=== PATIENT | female | born 1940 | race Caucasian/White ===

== ENCOUNTER 2017-01-05 11:54 | Observation (INO) | payer MEDICARE, OTHER ==
--- NOTE | 2017-01-02 15:15 | NUR ---
NN HAD PT HOLD ASPIRIN FOR THE WEEKEND PER ANI AT DR. LIN'S OFFICE.
[2017-01-05] VITALS (16 sets, daily range): BP systolic 138–198; BP diastolic 72–116; PULSE 84–106; RESP 14–28; TEMP 98–101.7; O2SAT 91–96; Ht 167.6 cm; Wt 103.0 kg
[~2017-01-05] VITALS: Ht 167.6 cm; Wt 103.0 kg
[~2017-01-05 11:54] MED LIST: ASPI-558 PO; BETA1TAB20 PO; CALC-587 PO; DOCU-129 PO; DOXY100C2 PO; HYDR-4246 PO; IBUP200C42 PO; LEVO125T9 PO; LIDOCAINE 1% (10mg/ml) 2ml SDV INJ ONE; LR 1,000 ML IV SCH; PRED20TA PO; ROSU10TA13 PO; SERT-77 PO; [UNRECOGNIZED DRUG - OTHER] PO
--- OUTSIDE RECORDS SUMMARY | 2017-01-05 11:59 | XMS REPORT ---
Author Author [facility]. Organization [facility] Address [address] [place] [address] Phone [phone] Summary purpose CCDA Sent to [facility] Chief Complaint and Reason for Visit No authorized Reason for Visit (Admitting Diagnosis) is available for this visit. Problem list No authorized problems tracked for continuity of care are available for this visit. Encounters No authorized problems tracked for encounter diagnoses are available for this visit. Medications No medications recorded for this patient visit Allergies, adverse reactions, alerts Allergen Category Ingredient Status Reaction Severity Onset No Known Drug Allergy No Known Drug Allergy No Known Drug Allergy Active Immunizations No immunizations recorded for this patient visit Relevant diagnostic tests and/or laboratory data No authorized results are available for this patient visit History of procedures No procedures recorded for this patient visit. Functional status No functional or cognitive status observations are available for this visit. Vital signs No authorized vital signs are available for this visit. Social history No Social History or smoking status observations were recorded for this visit. ( Unknown if ever smoked.) Treatment Plan No treatment plan text is available for this visit. Hospital discharge instructions No discharge instruction text is available for this visit.
--- OUTSIDE RECORDS SUMMARY | 2017-01-05 11:59 | XMS REPORT ---
Author Author [facility]. Organization [facility] Address [address] [place] [address] Phone [phone] Summary purpose CCDA Sent to [facility] Chief Complaint and Reason for Visit Admit Diagnosis 1 FEVER,WEAKNESS, BODY PAIN Problem list Condition Status Certainty Chronicity Onset .Fever Active .Weakness Active Encounters The following conditions tracked for encounter diagnoses were recorded for this visit: Finding or Diagnosis Status Certainty Chronicity Onset .Fever Active .Weakness Active Medications Discharge Medications Status Medication Directions Current Aspir-Low 81 mg tablet,delayed release 1 tab(s) oral DAILY Current Calcium + D 600 mg (1,500 mg)-200 unit tablet 1 tab(s) oral DAILY Current docusate sodium 100 mg capsule 1 capsule(s) oral HS Current Eye-Km Extra + Lutein oral 1 tab(s) oral DAILY Current HYDROcodone-acetaminophen (HYDROCONE/APAP) 5-325 mg 1 tab(s) oral EVERY FOUR HOURS NEEDED for PAIN Current ibuprofen 200 mg tablet 4 tab(s) oral oral EVERY EIGHT HOURS NEEDED for pain/fever Current Lasix 20 mg tablet 1 tab(s) oral oral NEEDED for edema Current Nitrostat 0.4 mg sublingual tablet 1 tab(s) Sublingual SL EVERY FIVE MINUTES NEEDED for chest pain xpath-functions" xmlns:xs="http://www.[employer].org/2001/XMLSchema" />UP TO 3 DOSES IN 15 MIN Current PREDNISONE 20 mg: TABLET 60 MG oral WITH BREAKFAST Current sertraline (ZOLOFT) 50 mg: TABLET 100 MG oral HS Current Synthroid 125 mcg tablet 1 tab(s) oral DAILY Stopped Metamucil oral powder 1 teaspoon(s) oral NEEDED Stopped Zoloft 100 mg tablet 1 tab(s) oral HS NEEDED Allergies, adverse reactions, alerts Allergen Category Ingredient Status Reaction Severity Onset No Known Drug Allergy No Known Drug Allergy No Known Drug Allergy Active Immunizations No immunizations recorded for this patient visit Relevant diagnostic tests and/or laboratory data RESULTS [id number]:00:00 Discharge Summary Patient discharged home. [id number]:32:34 Discharge Summary Pt admitted with fever of 3 days duration. No source found on w/u in ER. Blood cultures obtained. Pt started on Prednisone for possible Temporal Arteritis. CT head and LP negative. Blood cultures negative. No antibiotics given. CBC :35:00 Result Normal Range Units WBC 5.94 4.8-10.8 x103/mm3 Neutrophil % H 79.5 50-70 % Lymph % L 11.6 20-50 % [place] % 8.4 1.0-9.0 % Eosinophil % 0.2 0-4 % Basophil % 0.3 0-2 % Neutrophil # 4.72 3.0-7.0 x103/mm3 Lymph # L 0.69 1.0-4.0 x103/mm3 [place] # 0.50 0.0-0.8 x103/mm3 Eosinophil # 0.01 0-0.5 x103/mm3 Basophil # 0.02 0-0.2 x103/mm3 RBC L 3.92 4.20-5.40 x103/mm3 HGB 12.1 12.0-16.0 g/dl HCT L 36.2 37.0-47.0 % MCV 92.3 81-99 FL MCH 30.9 27.0-31.0 pg MCHC 33.4 32.0-36.0 g/dl RDW 13.8 12-15 % Platelet L 135 150-400 x103/mm3 MPV 9.9 6.0-10.0 FL :00:00 Result Normal Range Units WBC L 4.03 4.8-10.8 x103/mm3 Neutrophil % 69.2 50-70 % Lymph % L 19.9 20-50 % [place] % H 10.4 1.0-9.0 % Eosinophil % 0.0 0-4 % Basophil % 0.5 0-2 % Neutrophil # L 2.79 3.0-7.0 x103/mm3 Lymph # L 0.80 1.0-4.0 x103/mm3 [place] # 0.42 0.0-0.8 x103/mm3 Eosinophil # 0.00 0-0.5 x103/mm3 Basophil # 0.02 0-0.2 x103/mm3 RBC L 3.85 4.20-5.40 x103/mm3 HGB L 11.9 12.0-16.0 g/dl HCT L 35.9 37.0-47.0 % MCV 93.2 81-99 FL MCH 30.9 27.0-31.0 pg MCHC 33.1 32.0-36.0 g/dl RDW 14.0 12-15 % Platelet L 135 150-400 x103/mm3 MPV H 10.5 6.0-10.0 FL :00:00 Result Normal Range Units WBC L 4.70 4.8-10.8 x103/mm3 Neutrophil % H 83.9 50-70 % Lymph % L 10.6 20-50 % [place] % 5.3 1.0-9.0 % Eosinophil % 0.0 0-4 % Basophil % 0.2 0-2 % Neutrophil # 3.94 3.0-7.0 x103/mm3 Lymph # L 0.50 1.0-4.0 x103/mm3 [place] # 0.25 0.0-0.8 x103/mm3 Eosinophil # 0.00 0-0.5 x103/mm3 Basophil # 0.01 0-0.2 x103/mm3 RBC 4.21 4.20-5.40 x103/mm3 HGB 13.0 12.0-16.0 g/dl HCT 39.3 37.0-47.0 % MCV 93.3 81-99 FL MCH 30.9 27.0-31.0 pg MCHC 33.1 32.0-36.0 g/dl RDW 14.0 12-15 % Platelet L 132 150-400 x103/mm3 MPV 9.9 6.0-10.0 FL Urinalysis :25:00 Result Normal Range Units Site VOID Color Yellow Urine Appearance Clear Specific [place] 1.015 1.005-1.030 pH 5.5 5.0-9.0 Protein Negative Negative Glucose Negative Negative Ketones AB 4+ Negative Bilirubin Negative Negative Blood AB Trace-lyse Negative Nitrite Negative Negative Urobilinogen 0.2 0.20 mg/dl Leukocyte Negative Negative Chemistry Group :35:00 Sodium SMR Potassium SMR Chloride SMR CO2 SMR Glucose SMR BUN SMR Creatinine SMR eGFR SMR Total Protein SMR Albumin SMR Calcium SMR Alk Phos SMR AST SMR ALT SMR T Bili SMR A/G Ratio [facility] :00:00 Sodium SMR Potassium SMR Chloride SMR CO2 SMR Glucose SMR BUN SMR Creatinine SMR eGFR SMR Total Protein SMR Albumin SMR Calcium SMR Alk Phos SMR AST SMR ALT SMR T Bili SMR A/G Ratio SMR :00:00 Result Normal Range Units Sodium L 132 134-145 mmol/L Potassium 3.7 3.6-5.0 mmol/L Chloride L 95 98-107 mmol/L CO2 24 22-30 mmol/L Glucose 97 75-110 mg/dl BUN 10 9-20 mg/dl Creatinine L .61 0.8-1.7 mg/dl eGFR 95 ml/min. Total Protein 7.1 6.3-8.2 g/dl Albumin L 3.4 3.5-5.0 g/dl Calcium L 7.6 8.4-10.2 mg/dl Alk Phos 101 38-126 U/L AST H 60 14-36 U/L ALT 43 11-66 U/L T Bili .8 0.2-1.3 mg/dl A/G Ratio .9 Ratio [facility] Group :00:00 Result Normal Range Units Sed Rate (ESR) 10 0-20 MM/hr. Special Chemistry Group [id number]:35:00 Result Normal Range Units TSH L .37 0.50-6.00 uIU/mL Reference Lab Group :00:00 Result Normal Range Units C-Reactive Protein H 9.5 <0.5 mg/dL C-Reactive Protein performed at [facility] Reference Lab, [address] [place] [address] Archer[employer] Equipment Repairer Luciana Colvin DO [id number]:35:00 Result Normal Range Units Culture Blood Source See Comment Result Amended on 2017-01-02 at 15:56:46. Previous status was [place]. .Site: Received : 12/31/16 17:58 .Order#: [id number] Blood Culture PRELIM 01/01/17 12:15 F .No growth after 12 hours incubation. Nursing unit will be . called if growth is detected. .- .F: Performed at: [facility], [address], [place] FOR RESULTS: * - NEW RESULT - RESULT WAS MODIFIED AFTER FINAL STATUS SET [place] [address] [employer] Equipment Repairer Luciana Colvin DO Test Culture Blood Source with result ofSee Comment was originally reported asBLOOD 2 and was changed on 01/01/2017 12:16 by AMS Culture Blood See Comment [id number]:25:00 Result Normal Range Units Culture Blood Source See Comment Result Amended on 2017-01-02 at 15:56:46. Previous status was [place]. .Site: Received : 12/31/16 17:57 .Order#: [id number] Blood Culture PRELIM 01/01/17 12:15 F .No growth after 12 hours incubation. Nursing unit will be . called if growth is detected. .- .F: Performed at: [address], [place] FOR RESULTS: * - NEW RESULT - RESULT WAS MODIFIED AFTER FINAL STATUS SET [place] [address] Archer[employer] Equipment Repairer Luciana Colvin DO Test Culture Blood Source with result ofSee Comment was originally reported asBLOOD 1 and was changed on 01/01/2017 12:15 by AMS Culture Blood See Comment Urinalysis with Microscopic [id number]:25:00 Result Normal Range Units Site VOID Color Yellow Urine Appearance Clear Specific [place] 1.015 1.005-1.030 pH 5.5 5.0-9.0 Protein Negative Negative Glucose Negative Negative Ketones AB 4+ Negative Bilirubin Negative Negative Blood AB Trace-lyse Negative Nitrite Negative Negative Urobilinogen 0.2 0.20 mg/dl Leukocyte Negative Negative History of procedures No procedures recorded for this patient visit. Functional status Functional Status Finding Observation Time Dexterity Right-handed [id number]:17 Weight Bearing Statu Full [id number]:25 Transferring/Ambulat Independent [id number]:17 Dressing Independent :17 Eating Independent [id number]:17 Cognitive Status Finding Observation Time Level of Consciousne Alert :30 Oriented to Person Yes :[address] Yes :30 Oriented to Time Yes :30 Dizziness With Activity :42 Eyes - TIMOTEO Yes :30 Vital signs Type Value Date Respirations 16 :20 Pulse 97 :20 O2 Saturation 94% :20 Systolic Blood Press 139mm/HG :20 Diastolic Blood Pres 72mm/HG :20 Temperature (Fahr) 98.2Degrees [id number]:20 Height 66in :38 Weight 229.8LB :38 Social history Type Value Smoking Status FORMER SMOKER Treatment Plan Treatment Plan at [facility] for GC Arterioritis. on Thursday at [facility]. Hospital discharge instructions Diagnosis Giant cell arteritis. Diet no restrictions Activity Level as tolerated Personal Items Retur none received Med Dispensed by [employer] escribed and picked up by daughter. Follow up with [facility] Appointment Date and 01/08/2017 Other Instructions [facility] to call with appointment time for biopsy of artery scheduled Thursday.
--- OUTSIDE RECORDS SUMMARY | 2017-01-05 11:59 | XMS REPORT ---
Author Author [facility] Organization [facility] Address [address] [place] [address] Phone [phone] Summary purpose CCDA Sent to [facility] Chief Complaint and Reason for Visit Admit Diagnosis 1 DEPRESSIVE DISORDER NEC Problem list No authorized problems tracked for continuity of care are available for this visit. Encounters No authorized problems tracked for encounter diagnoses are available for this visit. Medications No home medications recorded for this patient visit Allergies, adverse reactions, alerts Allergen Category Ingredient Status Reaction Severity Onset No Known Allergies No Known Allergies No Known Allergies Active Immunizations No immunizations recorded for this patient visit Relevant diagnostic tests and/or laboratory data RESULTS CBC :00:00 Result Normal Range Units WBC 6.39 4.8-10.8 x103/mm3 Neutrophil % 64.5 50-70 % Lymph % 21.1 20-50 % [place] % H 9.9 1.0-9.0 % Eosinophil % 3.4 0-4 % Basophil % 1.1 0-2 % Neutrophil # 4.12 3.0-7.0 x103/mm3 Lymph # 1.35 1.0-4.0 x103/mm3 [place] # 0.63 0.0-0.8 x103/mm3 Eosinophil # 0.22 0-0.5 x103/mm3 Basophil # 0.07 0-0.2 x103/mm3 RBC 4.33 4.20-5.40 x103/mm3 HGB 13.4 12.0-16.0 g/dl HCT 40.7 37.0-47.0 % MCV 94.0 81-99 FL MCH 30.9 27.0-31.0 pg MCHC 32.9 32.0-36.0 g/dl RDW 14.0 12-15 % Platelet 279 150-400 x103/mm3 MPV H 10.4 6.0-10.0 FL Chemistry Group :00:00 Result Normal Range Units Sodium 139 134-145 mmol/L Potassium 4.6 3.6-5.0 mmol/L Chloride 100 98-107 mmol/L CO2 28 22-30 mmol/L Glucose 99 75-110 mg/dl BUN 16 9-20 mg/dl Creatinine L .7 0.8-1.7 mg/dl Total Protein 6.8 6.3-8.2 g/dl Albumin 3.7 3.5-5.0 g/dl Calcium 9.2 8.4-10.2 mg/dl Alk Phos 87 38-126 U/L AST 24 14-36 U/L ALT 25 11-66 U/L T Bili .3 0.2-1.3 mg/dl A/G Ratio 1.2 Ratio Special Chemistry Group [id number]:00:00 Result Normal Range Units TSH 0.79 0.50-6.00 uIU/mL History of procedures Procedure Code Code Type Description Date Performed Performing Physician 18527 CPT-4 ASSAY THYROID STIM HORMONE 05-31-2015 AROLDO ERVIN 52383 CPT-4 COMPREHEN METABOLIC PANEL 05-31-2015 AROLDO ERVIN 70263 CPT-4 COMPLETE CBC AUTOMATED 05-31-2015 AROLDO ERVIN Functional status No functional or cognitive status [...]
--- OUTSIDE RECORDS SUMMARY | 2017-01-05 12:00 | XMS REPORT ---
Author Author [facility] Organization [facility] Address [address] [place] [address] Phone [phone] Summary purpose CCDA Sent to [facility] Chief Complaint and Reason for Visit No [...] diagnostic tests and/or laboratory data RESULTS CBC :20:00 Result Normal Range Units WBC 6.46 4.8-10.8 x103/mm3 Neutrophil % 60.8 50-70 % Lymph % 23.1 20-50 % [place] % 8.8 1.0-9.0 % Eosinophil % H 6.2 0-4 % Basophil % 1.1 0-2 % Neutrophil # 3.93 3.0-7.0 x103/mm3 Lymph # 1.49 1.0-4.0 x103/mm3 [place]b # 0.57 0.0-0.8 x103/mm3 Eosinophil # 0.40 0-0.5 x103/mm3 Basophil # 0.07 0-0.2 x103/mm3 RBC 4.25 4.20-5.40 x103/mm3 HGB 13.2 12.0-16.0 g/dl HCT 39.9 37.0-47.0 % MCV 93.9 81-99 FL MCH H 31.1 27.0-31.0 pg MCHC 33.1 32.0-36.0 g/dl RDW 14.7 12-15 % Platelet 288 150-400 x103/mm3 MPV H 10.2 6.0-10.0 FL Chemistry Group [id number]:20:00 Result Normal Range Units Sodium 141 134-145 mmol/L Potassium 4.6 3.6-5.0 mmol/L Chloride 105 98-107 mmol/L CO2 27 22-30 mmol/L Glucose 91 75-110 mg/dl BUN 11 9-20 mg/dl Creatinine L .69 0.8-1.7 mg/dl eGFR 83 ml/min. Total Protein 6.8 6.3-8.2 g/dl Albumin 3.5 3.5-5.0 g/dl Calcium 9.0 8.4-10.2 mg/dl Alk Phos 102 38-126 U/L AST 21 14-36 U/L ALT 19 11-66 U/L T Bili .4 0.2-1.3 mg/dl A/G Ratio 1.0 Ratio Special Chemistry Group [id number]:00 Result Normal Range Units TSH 0.55 0.50-6.00 uIU/mL History of procedures Procedure Code Code Type Description Date Performed Performing Physician 37509 CPT-4 COMPREHEN METABOLIC PANEL 06-30-2016 AROLDO ERVIN 75980 CPT-4 ASSAY THYROID STIM HORMONE 06-30-2016 AROLDO ERVIN 75646 CPT-4 COMPLETE CBC, AUTOMATED 06-30-2016 AROLDO ERVIN Functional status No functional or [...]
--- OUTSIDE RECORDS SUMMARY | 2017-01-05 12:00 | XMS REPORT | Continuity of Care Document ---
Demographics Preferred Language Unknown Marital Status Unknown Quaker Affiliation Unknown Race Unknown Ethnic Group Unknown Author Author [facility] Organization [facility] Address Unknown Phone Unavailable Allergies Active Description Code Type Severity Reaction Onset Reported/Identified Relationship to Patient Clinical Status Yes No Known Allergies [id number] NK N/A N/A 05/21/2012 Medications Problems Date Dx Coded Attending Type Code Diagnosis Diagnosed By 02/25/2013 AROLDO ERVIN MD 244.9 HYPOTHYROIDISM NOS 02/25/2013 AROLDO ERVIN MD 272.0 PURE HYPERCHOLESTEROLEM 12/02/2013 DIANA MALDONADO 729.5 PAIN IN LIMB 04/07/2014 AROLDO ERVIN MD 244.9 HYPOTHYROIDISM NOS 05/31/2015 AROLDO ERVIN MD 311 DEPRESSIVE DISORDER NEC 08/27/2015 TIMSON DPM, CED J Ot M76.71 08/27/2015 TIMSON DPM, CED J Ot M76.71 08/27/2015 TIMSON DPM, CED J Ot M76.61 08/27/2015 TIMISIDRO DPMonae, CED J Ot Z01.812 06/30/2016 AROLDO ERVIN MD E03.9 Hypothyroidism, unspecified 06/30/2016 AROLDO ERVIN MD E78.0 Pure hypercholesterolemia 07/03/2016 AROLDO ERVIN MD N76.0 Acute vaginitis 07/03/2016 AROLDO ERVIN MD R39.15 Urgency of urination Procedures Code Description [place] [address] COMPREHEN METABOLIC PANEL AROLDO ERVIN MD 02/25/2013 84457 ASSAY THYROID STIM HORMONE AROLDO ERVIN MD 02/25/2013 72501 COMPLETE CBC, AUTOMATED AROLDO ERVIN MD 02/25/2013 74706 COMPREHEN METABOLIC PANEL DIANA MALDONADO 12/02/2013 89127 COMPLETE CBC, AUTOMATED DIANA MALDONADO 12/02/2013 90178 RBC SED RATE, AUTOMATED DIANA MALDONADO 12/02/2013 39285 COMPREHEN METABOLIC PANEL AROLDO ERVIN MD 04/07/2014 00678 ASSAY THYROID STIM HORMONE AROLDO ERVIN MD R 04/07/2014 68340 COMPLETE CBC, AUTOMATED AZIZA KEARNEY, AROLDO R 04/07/2014 13761 COMPREHEN METABOLIC PANEL AROLDO ERVIN MD R 05/31/2015 40700 ASSAY THYROID STIM HORMONE AROLDO ERVIN MD 05/31/2015 11055 COMPLETE CBC, AUTOMATED AROLDO ERVIN MD R 05/31/2015 26701 COMPREHEN METABOLIC PANEL AROLDO ERVIN MD R 06/30/2016 38835 ASSAY THYROID STIM HORMONE AROLDO ERVIN MD 06/30/2016 13078 COMPLETE CBC, AUTOMATED AZIZA KEARNEY, AROLDO R 06/30/2016 91887 TALI, DNA, DIR PROBE AZIZA KEARNEY, AROLDO R 07/03/2016 17220 DAN VAG, DNA, DIR PROBE AZIZA KEARNEY, AROLDO Kaiser 07/03/2016 76886 TRICHOMONAS VAGIN, DIR PROBE AZIZA KEARNEY , AROLDO R 07/03/2016 Results Test Result Range CBC - 02/25/13 07:40 Granulocyte # 3.7 x10^3 3.0-7.0 Granulocyte % 66.0 % 50-70 HCT 42.8 % 37.0-47.0 HGB 14.2 G/DL 12.0-16.0 Lymph # 1.4 x10^3 1.0-4.0 Lymph % 26.7 % 20-50 MCH 31.2 PG 27.0-31.0 MCHC 33.1 G/DL 32.0-36.0 MCV 94 FL 81-99 Valley # 0.3 x10^3 0.0-0.8 Valley % 7.3 % 1.0-9.0 MPV 7.4 FL 6.0-10.0 Platelet 274 x10^3 150-400 RBC 4.54 x10^3 4.20-5.40 RDW 14.4 % 10.0-13.0 WBC 5.4 x10^3 4.8-10.8 TSH - 02/25/13 07:40 TSH 4.01 UIUML 0.50-6.00 Comprehensive Metabolic Panel - 02/25/13 07:40 Sodium 142 MMOLL 134-145 Potassium 4.7 MMOLL 3.6-5.0 Chloride 107 MMOLL 98-107 CO2 26 MMOLL 22-30 Glucose 100 MG/DL 75-110 BUN 17 MG/DL 9-20 Creatinine .7 MG/DL 0.8-1.7 Calcium 8.8 MG/DL 8.4-10.2 T Bili .2 MG/DL 0.2-1.3 T. Protein 6.7 G/DL 6.3-8.2 A/G Ratio 1.2 RATIO Albumin 3.6 G/DL 3.5-5.0 Alk Phos 93 U/L 38-126 ALT 23 U/L 11-66 AST 20 U/L 14-36 CBC - 12/02/13 15:35 Eos # 0.31 x10^3 0-0.5 Eos % 3.5 % 0-4 HCT 40.4 % 37.0-47.0 HGB 13.3 G/DL 12.0-16.0 Lymph # 1.63 x10^3 1.0-4.0 Lymph % 18.2 % 20-50 MCH 31.7 PG 27.0-31.0 MCHC 32.9 G/DL 32.0-36.0 MCV 96.4 FL 81-99 [place] # 0.56 x10^3 0.0-0.8 Valley % 6.2 % 1.0-9.0 MPV 10.4 FL 6.0-10.0 Platelet 261 x10^3 150-400 RBC 4.19 x10^3 4.20-5.40 RDW 14.2 % 12-15 WBC 8.98 x10^3 4.8-10.8 Baso # 0.04 x10^3 0-0.2 Baso % 0.4 % 0-2 Neut % 71.7 % 50-70 Neut # 6.44 x10^3 3.0-7.0 Comprehensive Metabolic Panel - 12/02/13 15:35 Sodium 145 MMOLL 134-145 Potassium 4.6 MMOLL 3.6-5.0 Chloride 104 MMOLL 98-107 CO2 29 MMOLL 22-30 Glucose 128 MG/DL 75-110 BUN 17 MG/DL 9-20 Creatinine 1.4 MG/DL 0.8-1.7 Calcium 9.1 MG/DL 8.4-10.2 T Bili .2 MG/DL 0.2-1.3 T. Protein 7.4 G/DL 6.3-8.2 A/G Ratio 1.1 RATIO Albumin 3.9 G/DL 3.5-5.0 Alk Phos 85 U/L 38-126 ALT 17 U/L 11-66 AST 22 U/L 14-36 Sed Rate (ESR) - 12/02/13 15:35 Sed Rate (ESR) 16 MM/hr 0-20 Comprehensive Metabolic Panel - 04/07/14 09:16 Sodium 145 MMOLL 134-145 Potassium 4.7 MMOLL 3.6-5.0 Chloride 104 MMOLL 98-107 CO2 31 MMOLL 22-30 Glucose 94 MG/DL 75-110 BUN 15 MG/DL 9-20 Creatinine .7 MG/DL 0.8-1.7 Calcium 9.2 MG/DL 8.4-10.2 T Bili .2 MG/DL 0.2-1.3 T. Protein 6.9 G/DL 6.3-8.2 A/G Ratio 1.2 RATIO Albumin 3.8 G/DL 3.5-5.0 Alk Phos 105 U/L 38-126 ALT 25 U/L -66 AST 21 U/L 14-36 CBC - 04/07/14 09:16 Eos # 0.38 x10^3 0-0.5 Eos % 5.4 % 0-4 HCT 41.9 % 37.0-47.0 HGB 13.9 G/DL 12.0-16.0 Lymph # 1.45 x10^3 1.0-4.0 Lymph % 20.7 % 20-50 MCH 31.4 PG 27.0-31.0 MCHC 33.2 G/DL 32.0-36.0 MCV 94.8 FL 81-99 [place] # 0.68 x10^3 0.0-0.8 [place] % 9.7 % 1.0-9.0 MPV 10.1 FL 6.0-10.0 Platelet 257 x10^3 150-400 RBC 4.42 x10^3 4.20-5.40 RDW 14.4 % 12-15 WBC 7.00 x10^3 4.8-10.8 Baso # 0.06 x10^3 0-0.2 Baso % 0.9 % 0-2 Neut % 63.3 % 50-70 Neut # 4.43 x10^3 3.0-7.0 TSH - 04/07/14 09:16 TSH 3.46 UIUML 0.50-6.00 CBC - 05/31/15 13:24 Eos # 0.22 x10^3 0-0.5 Eos % 3.4 % 0-4 HCT 40.7 % 37.0-47.0 HGB 13.4 G/DL 12.0-16.0 Lymph # 1.35 x10^3 1.0-4.0 Lymph % 21.1 % 20-50 MCH 30.9 PG 27.0-31.0 MCHC 32.9 G/DL 32.0-36.0 MCV 94.0 FL 81-99 [place] # 0.63 x10^3 0.0-0.8 Valley % 9.9 % 1.0-9.0 MPV 10.4 FL 6.0-10.0 Platelet 279 x10^3 150-400 RBC 4.33 x10^3 4.20-5.40 RDW 14.0 % 12-15 WBC 6.39 x10^3 4.8-10.8 Baso # 0.07 x10^3 0-0.2 Baso % 1.1 % 0-2 Neut % 64.5 % 50-70 Neut # 4.12 x10^3 3.0-7.0 Comprehensive Metabolic Panel - 05/31/15 13:24 Sodium 139 MMOLL 134-145 Potassium 4.6 MMOLL 3.6-5.0 Chloride 100 MMOLL 98-107 CO2 28 MMOLL 22-30 Glucose 99 MG/DL 75-110 BUN 16 MG/DL 9-20 Creatinine .7 MG/DL 0.8-1.7 Calcium 9.2 MG/DL 8.4-10.2 T Bili .3 MG/DL 0.2-1.3 T. Protein 6.8 G/DL 6.3-8.2 A/G Ratio 1.2 RATIO Albumin 3.7 G/DL 3.5-5.0 Alk Phos 87 U/L 38-126 ALT 25 U/L 11-66 AST 24 U/L 14-36 TSH - 05/31/15 14:06 TSH 0.79 UIUML 0.50-6.00 Comprehensive Metabolic Panel - 06/30/16 11:39 Sodium 141 MMOLL 134-145 Potassium 4.6 MMOLL 3.6-5.0 Chloride 105 MMOLL 98-107 CO2 27 MMOLL 22-30 Glucose 91 MG/DL 75-110 BUN 11 MG/DL 9-20 Creatinine .69 MG/DL 0.8-1.7 Calcium 9.0 MG/DL 8.4-10.2 T Bili .4 MG/DL 0.2-1.3 T. Protein 6.8 G/DL 6.3-8.2 A/G Ratio 1.0 RATIO Albumin 3.5 G/DL 3.5-5.0 Alk Phos 102 U/L 38-126 ALT 19 U/L 11-66 AST 21 U/L 14-36 EGFR 83 MLMIN CBC - 06/30/16 12:02 Eos # 0.40 x10^3 0-0.5 Eos % 6.2 % 0-4 HCT 39.9 % 37.0-47.0 HGB 13.2 G/DL 12.0-16.0 Lymph # 1.49 x10^3 1.0-4.0 Lymph % 23.1 % 20-50 MCH 31.1 PG 27.0-31.0 MCHC 33.1 G/DL 32.0-36.0 MCV 93.9 FL 81-99 [place] # 0.57 x10^3 0.0-0.8 [place] % 8.8 % 1.0-9.0 MPV 10.2 FL 6.0-10.0 Platelet 288 x10^3 150-400 RBC 4.25 x10^3 4.20-5.40 RDW 14.7 % 12-15 WBC 6.46 x10^3 4.8-10.8 Baso # 0.07 x10^3 0-0.2 Baso % 1.1 % 0-2 Neut % 60.8 % 50-70 Neut # 3.93 x10^3 3.0-7.0 TSH - 06/30/16 16:21 TSH 0.55 UIUML 0.50-6.00 AFFIRM Vaginitis Panel - 07/03/16 15:04 Gardnerella POS Negative Trichomonas NEG Negative Tali NEG Negative Influenza A B - 12/30/16 12:12 Influenza A NEG Negative Influenza B NEG Negative CBC - 12/30/16 20:26 Eos # 0.00 x10^3 0-0.5 Eos % 0.0 % 0-4 HCT 39.3 % 37.0-47.0 HGB 13.0 G/DL 12.0-16.0 Lymph # 0.50 x10^3 1.0-4.0 Lymph % 10.6 % 20-50 MCH 30.9 PG 27.0-31.0 MCHC 33.1 G/DL 32.0-36.0 MCV 93.3 FL 81-99 [place] # 0.25 x10^3 0.0-0.8 Valley % 5.3 % 1.0-9.0 MPV 9.9 FL 6.0-10.0 Platelet 132 x10^3 150-400 RBC 4.21 x10^3 4.20-5.40 RDW 14.0 % 12-15 WBC 4.70 x10^3 4.8-10.8 Baso # 0.01 x10^3 0-0.2 Baso % 0.2 % 0-2 Neut % 83.9 % 50-70 Neut # 3.94 x10^3 3.0-7.0 Comprehensive Metabolic Panel - 12/30/16 20:26 Sodium 132 MMOLL 134-145 Potassium 3.7 MMOLL 3.6-5.0 Chloride 95 MMOLL 98-107 CO2 24 MMOLL 22-30 Glucose 97 MG/DL 75-110 BUN 10 MG/DL 9-20 Creatinine .61 MG/DL 0.8-1.7 Calcium 7.6 MG/DL 8.4-10.2 T Bili .8 MG/DL 0.2-1.3 T. Protein 7.1 G/DL 6.3-8.2 A/G Ratio .9 RATIO Albumin 3.4 G/DL 3.5-5.0 Alk Phos 101 U/L 38-126 ALT 43 U/L 11-66 AST 60 U/L 14-36 EGFR 95 MLMIN Urinalysis - 12/30/16 20:38 Bilirubin Negative Negative Blood Trace-lyse Negative Color Yellow Glucose Negative Negative Ketones 4+ Negative Leukocyte Negative Negative Nitrite Negative Negative pH 5.5 5.0-9.0 Urine Appearance Clear Protein Negative Negative Urobilinogen 0.2 MG/DL 0.20 Specific [place] 1.015 1.005-1.030 Site VOID Culture Blood - 01/02/17 15:54 Culture Blood See Comment Culture Blood Source See Comment Culture Blood - 01/02/17 15:54 Culture Blood See Comment Culture Blood Source See Comment CBC - 12/31/16 07:39 Eos # 0.00 x10^3 0-0.5 Eos % 0.0 % 0-4 HCT 35.9 % 37.0-47.0 HGB 11.9 G/DL 12.0-16.0 Lymph # 0.80 x10^3 1.0-4.0 Lymph % 19.9 % 20-50 MCH 30.9 PG 27.0-31.0 MCHC 33.1 G/DL 32.0-36.0 MCV 93.2 FL 81-99 [place] # 0.42 x10^3 0.0-0.8 Valley % 10.4 % 1.0-9.0 MPV 10.5 FL 6.0-10.0 Platelet 135 x10^3 150-400 RBC 3.85 x10^3 4.20-5.40 RDW 14.0 % 12-15 WBC 4.03 x10^3 4.8-10.8 Baso # 0.02 x10^3 0-0.2 Baso % 0.5 % 0-2 Neut % 69.2 % 50-70 Neut # 2.79 x10^3 3.0-7.0 Sed Rate (ESR) - 12/31/16 09:50 Sed Rate (ESR) 10 MM/hr 0-20 CBC - 01/01/17 08:12 Eos # 0.01 x10^3 0-0.5 Eos % 0.2 % 0-4 HCT 36.2 % 37.0-47.0 HGB 12.1 G/DL 12.0-16.0 Lymph # 0.69 x10^3 1.0-4.0 Lymph % 11.6 % 20-50 MCH 30.9 PG 27.0-31.0 MCHC 33.4 G/DL 32.0-36.0 MCV 92.3 FL 81-99 [place] # 0.50 x10^3 0.0-0.8 Valley % 8.4 % 1.0-9.0 MPV 9.9 FL 6.0-10.0 Platelet 135 x10^3 150-400 RBC 3.92 x10^3 4.20-5.40 RDW 13.8 % 12-15 WBC 5.94 x10^3 4.8-10.8 Baso # 0.02 x10^3 0-0.2 Baso % 0.3 % 0-2 Neut % 79.5 % 50-70 Neut # 4.72 x10^3 3.0-7.0 C-Reactive Protein - 01/01/17 09:28 C-Reactive Protein 9.5 mg/dL <0.5 TSH - 01/01/17 11:44 TSH .37 UIUML 0.50-6.00 Comprehensive Metabolic Panel - 01/01/17 11:49 Sodium SMR MMOLL Potassium SMR MMOLL Chloride SMR MMOLL CO2 SMR MMOLL Glucose SMR MG/DL BUN SMR MG/DL Creatinine SMR MG/DL Calcium SMR MG/DL T Bili SMR MG/DL T. Protein SMR G/DL A/G Ratio SMR RATIO Albumin SMR G/DL Alk Phos SMR U/L ALT SMR U/L AST SMR U/L EGFR [facility] Comprehensive Metabolic Panel - 01/01/17 11:52 Sodium SMR MMOLL Potassium SMR MMOLL Chloride SMR MMOLL CO2 SMR MMOLL Glucose SMR MG/DL BUN SMR MG/DL Creatinine SMR MG/DL Calcium SMR MG/DL T Bili SMR MG/DL T. Protein SMR G/DL A/G Ratio SMR RATIO Albumin SMR G/DL Alk Phos SMR U/L ALT SMR U/L AST SMR U/L EGFR [facility] Encounters ACCT No. Visit Date/Time Discharge Status Pt. Type Provider Facility Loc./Unit Complaint [id number] 10/24/2014 08:04:00 ACT Unknown
--- OUTSIDE RECORDS SUMMARY | 2017-01-05 12:00 | XMS REPORT ---
Author Author [facility]. Organization [facility] Address [address] [place] [address] Phone [phone] Summary purpose CCDA Sent to [facility] Chief Complaint and Reason for Visit [...] for this patient visit History of procedures Procedure Code Code Type Description Date Performed Performing Physician 85184 CPT-4 CECI, DNA, DIR PROBE 07-03-2016 AROLDO ERVIN 62362 CPT-4 DAN VAG, DNA, DIR PROBE 07-03-2016 AROLDO ERVIN 76946 CPT-4 TRICHOMONAS VAGIN, DIR PROBE 07-03-2016 AROLDO ERVIN Functional status No functional or [...]
--- OUTSIDE RECORDS SUMMARY | 2017-01-05 12:00 | XMS REPORT | CCD ---
Author Author [facility] Organization Unknown Address [address], [place] [id number] Phone 0 Care Team Providers Care Cma Name Role Phone [place] EARLY Attending Physician 0 NNEKA A Primary Surgeon 0 Vital Signs Unknown or Not Available. Allergies Allergy Code Allergy Type Reaction Status No Known Drug Allergies 0 No known drug allergies Active Procedures Unknown or Not Available. History of Immunizations Unknown or Not Available. Problems Unknown or Not Available. Results Unknown or Not Available. Active Medications Unknown or Not Available. Medications Administered During Visit Unknown or Not Available. Encounters Encounter Diagnosis Diagnosis Code Start Date CONTUSION SHOULDER REG 45859 09/09/2014 Social History Smoking Status Code Start Date End Date Unknown if ever smoked [id number] Patient Decision Aids Unknown or Not Available. Discharge Instructions You were admitted to [facility] on 09/09/2014 with a principal diagnosis of CONTUSION SHOULDER REG. You were discharged from [facility] on 09/09/2014. Should you have any questions prior to discharge, please contact a member of your healthcare team. If you have left the hospital and have any questions, please contact your primary care physician. Chief Complaint and Reason For Visit Unknown or Not Available. Function Status Unknown or Not Available. Plan of Care Unknown or Not Available. Referral/Transition of Care Unknown or Not Available.
--- NOTE | 2017-01-05 12:36 | NUR ---
STATUS PATIENT RATING PAIN AT A 9 ON 0-10 SCALE AT THIS TIME. SHE HAD RATED IT AT 4 ON 0-10 SCALE ON ADMIT. PATIENT SPEECH APPEARS SLIGHTLY SLURRED, AND SHE IS SLOW TO ANSWER QUESTIONS. PATIENT DAUGHTER AT BEDSIDE AND STATES THIS IS NOT NORMAL FOR HER MOM. ESEQUIEL WITH ANESTHESIA NOTIFIED, DR. LIN CONSULTED BY HIM, AND RN INSTRUCTED TO CALL HOSPITALIST TO SEE PATIENT IN ROOM NOW. WILL CONTINUE TO MONITOR.
--- NOTE | 2017-01-05 12:40 | NUR ---
STATUS PATIENT CONTINUES TO RATE PAIN AT 9 ON 0-10 SCALE. ANSWERING QUESTIONS APPROPRIATELY, STATES HER MOUTH IS DRY. NO FACIAL DROOP NOTED WHEN PATIENT ASKED TO SMILE AND STICK OUT TONGUE. PATIENT STATES PAIN IS TO RIGHT SIDE OF HEAD. WILL CONTINUE TO MONITOR.
--- NOTE | 2017-01-05 13:05 | NUR ---
STATUS DR. LIN AND HOSPITALIST IN ROOM TO ASSESS PATIENT AND VISIT WITH PATIENT DAUGHTER AT THIS TIME. WILL CONTINUE TO MONITOR.
[2017-01-05] MEDS ORDERED: HYDROMORPHONE 2mg/ml INJECTION IV PRN ×3 (13:30→16:30)
[2017-01-05] MEDS ORDERED: ONDANSETRON 4mg/2ml INJECTION IV PRN (13:30)
--- OUTSIDE RECORDS SUMMARY | 2017-01-05 13:49 | XMS REPORT | Continuity of Care Document ---
Demographics Preferred Language Unknown Marital Status Unknown Worship Affiliation Unknown Race Unknown Ethnic Group Unknown Author Author [facility] Organization [facility] Address Unknown Phone Unavailable Allergies Active Description Code Type Severity Reaction Onset Reported/Identified Relationship to Patient Clinical Status Yes No Known Allergies [id number] NK N/A N/A 05/21/2012 Medications Problems Date [...] Procedures Code [place] [address] COMPREHEN METABOLIC PANEL AROLDO ERVIN MD 02/25/2013 61562 ASSAY THYROID STIM HORMONE AROLDO ERVIN MD 02/25/2013 37120 COMPLETE CBC, AUTOMATED AROLDO ERVIN MD 02/25/2013 79758 COMPREHEN METABOLIC PANEL DIANA MALDONADO 12/02/2013 82799 COMPLETE CBC, AUTOMATED DIANA MALDONADO 12/02/2013 06253 RBC SED RATE, AUTOMATED DIANA MALDONADO 12/02/2013 17324 COMPREHEN METABOLIC PANEL AROLDO ERVIN MD 04/07/2014 87309 ASSAY THYROID STIM HORMONE AROLDO ERVIN MD R 04/07/2014 45236 COMPLETE CBC, AUTOMATED AZIZA KEARNEY, AROLDO R 04/07/2014 22904 COMPREHEN METABOLIC PANEL AROLDO ERVIN MD R 05/31/2015 18964 ASSAY THYROID STIM HORMONE AROLDO ERVIN MD 05/31/2015 84044 COMPLETE CBC, AUTOMATED AROLDO ERVIN MD R 05/31/2015 90352 COMPREHEN METABOLIC PANEL AROLDO ERVIN MD R 06/30/2016 73755 ASSAY THYROID STIM HORMONE AROLDO ERVIN MD 06/30/2016 16821 COMPLETE CBC, AUTOMATED AZIZA KEARNEY, AROLDO R 06/30/2016 43277 TALI, DNA, DIR PROBE AZIZA KEARNEY, AROLDO R 07/03/2016 35153 DAN VAG, DNA, DIR PROBE AZIZA KEARNEY, AROLDO Kaiser 07/03/2016 02585 TRICHOMONAS VAGIN, DIR PROBE AZIZA KEARNEY , AROLDO R 07/03/2016 Results Test Result Range CBC - 02/25/13 07:40 Granulocyte # 3.7 x10^3 3.0-7.0 Granulocyte % 66.0 % 50-70 HCT 42.8 % 37.0-47.0 HGB 14.2 G/DL 12.0-16.0 Lymph # 1.4 x10^3 1.0-4.0 Lymph % 26.7 % 20-50 MCH 31.2 PG 27.0-31.0 MCHC 33.1 G/DL 32.0-36.0 MCV 94 FL 81-99 [place] # 0.3 x10^3 0.0-0.8 [place] % 7.3 % 1.0-9.0 MPV 7.4 FL [...] 32.9 G/DL 32.0-36.0 MCV 96.4 FL 81-99 [place] # 0.56 x10^3 0.0-0.8 [place] % 6.2 % 1.0-9.0 MPV 10.4 FL [...] 33.2 G/DL 32.0-36.0 MCV 94.8 FL 81-99 [place] # 0.68 x10^3 0.0-0.8 [place] % 9.7 % 1.0-9.0 MPV 10.1 FL [...] 32.9 G/DL 32.0-36.0 MCV 94.0 FL 81-99 [place] # 0.63 x10^3 0.0-0.8 [place] % 9.9 % 1.0-9.0 MPV 10.4 FL [...] 33.1 G/DL 32.0-36.0 MCV 93.9 FL 81-99 [place] # 0.57 x10^3 0.0-0.8 [place] % 8.8 % 1.0-9.0 MPV 10.2 FL [...] 33.1 G/DL 32.0-36.0 MCV 93.3 FL 81-99 [place] # 0.25 x10^3 0.0-0.8 [place] % 5.3 % 1.0-9.0 MPV 9.9 FL [...] Negative Negative Urobilinogen 0.2 MG/DL 0.20 Specific [place] 1.015 1.005-1.030 Site VOID Culture Blood - [...] 33.1 G/DL 32.0-36.0 MCV 93.2 FL 81-99 [place] # 0.42 x10^3 0.0-0.8 [place] % 10.4 % 1.0-9.0 MPV 10.5 FL [...] 33.4 G/DL 32.0-36.0 MCV 92.3 FL 81-99 [place] # 0.50 x10^3 0.0-0.8 [place] % 8.4 % 1.0-9.0 MPV 9.9 FL [...] ALT SMR U/L AST SMR U/L EGFR [facility] Comprehensive Metabolic Panel - 01/01/17 11:52 Sodium SMR MMOLL Potassium SMR MMOLL Chloride SMR MMOLL CO2 SMR MMOLL Glucose SMR MG/DL BUN SMR MG/DL Creatinine SMR MG/DL Calcium SMR MG/DL T Bili SMR MG/DL T. Protein SMR G/DL A/G Ratio SMR RATIO Albumin SMR G/DL Alk Phos SMR U/L ALT SMR U/L AST SMR U/L EGFR [facility] Encounters ACCT No. Visit Date/Time Discharge Status Pt. Type Provider Facility Loc./Unit Complaint [id number] 10/24/2014 08:04:00 ACT Unknown
--- NOTE | 2017-01-05 13:57 | PDPROCED ---
Procedure Note Date 01/05/17 Procedure Name Consulted for PIV. peripheral iv with ultra sound guidance Procedure Detail right arm was prepped with chloroprep. Under ultra sound guidance a 20 g angiocatheter was inserted first attempt on the right arm after 1 ml of 1% xylocaine was used for skin infiltration. Patient tolerated procedure well. JONATHAN Lopez CRNA, CRNA Jan 05, 2017 13:57
[2017-01-05] MEDS: NORMAL SALINE 1,000 ML IV SCH ×2 (14:01→23:30)
--- NOTE | 2017-01-05 14:05 | NUR ---
REPORT THIS NURSE RECEIVED REPORT FROM DOMINICK ADAMS AT THIS TIME, NO CONCERNS AT THIS TIME.
[2017-01-05] MEDS ORDERED: HYDROMORPHONE 2mg/ml INJECTION IV ONE (14:15)
[2017-01-05] MEDS ORDERED: LORAZEPAM 2 MG/ML INJECTION IV ONE (14:15)
--- NOTE | 2017-01-05 14:28 | NUR ---
STATUS PATIENT TRANSPORTED TO MRI BY RADIOLOGY STAFF. PATIENT GIVEN DILAUDID 0.5 MG IV PER ONE TIME ORDER, SEE EMAR. ATIVAN DOSE TO BE HELD AT THIS TIME DUE TO PATIENT COMFORT LEVEL AT THIS TIME. WILL BE GIVEN BY PERIANESTHESIA STAFF IF NEEDED AFTER CALL FROM RADIOLOGY. REPORT GIVEN TO MELANIE AT [id number].
--- NOTE | 2017-01-05 14:33 | HPPDOC ---
JOSÉ LUIS SHANKAR PLAYBACK OPERATOR 01/05/17 1333: HPI - Adult Date DATE: 01/05/17 TIME: 13:28 General Chief Complaint: SEVERE HEADACHE History of Present Illness Aviva Nair is a 76 y/o lady who began having a fever and right temporal headache on 12/27/16. At that time she had max temp of 103. She was admitted to the hospital in [facility] - CT head & chest were negative; LP was done and cx were neg. BC and UA also neg. West Nile and RMSF were sent. She developed a macular pink-colored nonblanchable rash to arms and torso - lesions were about 5 mm in diameter and they tended to come and go. Dr. Mi Jacobs consulted Dr. Quan (ID) - suspected temporal arteritis as most likely DD. She was started on Prednisone; she never received abx - source never identified. She was scheduled for bx on 01/01, but developed a new fever so it was rescheduled to 01/05/17. Her symptoms persisted with a fever up to 104.5 (on 01/03) . Headache typically ranged between 2-5/10 in intensity, but on day of bx, pain suddenly shot up to 9/10. She had difficulty walking into the hospital and was transported via . She developed new slurred speech and delayed responses. Dr. Perez cancelled the bx and consulted Dr. Muir. The patient was seen in the preop area. She kept a towel over her eyes and an ice bag to the right side of her head. Her only complaint is a severe headache. She was not running a fever today but had low grade temps all day yesterday. No URI sx, dyspnea, chest pain, palpitations, vision changes, paresthesias, dysphagia, n/v/d/c, dysuria, leg swelling. No recent travel. She has a pet dog. No known exposures. Her daughter, Alaina, reports that typically her mother is very healthy with a "lot of [id number]". Recent results: LP on 01/01/17 CSF color: colorless, clear; RBC 0, Neut 25, lymph 24, mono 51, Eos 0, baso 0, other 0, glu 65 (40-70), protein 34 (12-60) CSF cx - neg 01/02/17 BC: neg. CBC 01/01/17 - WBC 5.94, neut 79.5, lymph 11.6, hgb 12.1, hct 36.2, plt 135 CMP 01/01/17 - Na 140, K 3.8, CO2 28, BUN 8, Cr 0.6, GFR 97, glu 104, bili 0.6, AST 41, ALT 38 CT head on 01/01/17 - no acute abnormality; small vessel ischemic changes in periventricular and subcortical white matter. Visualized paranasal sinuses show nodular mucosal thickening in left maxillary sinus. Past Medical History Past Medical History Patient's Medical History: (1) Hypothyroidism (acquired) (2) Obesity (BMI 30-39.9) Surgical History Patient's Surgical History: Colonoscopy 05/09 (20 cm tubular adenoma & hyperplastic polyp) Transobturator subfacial sling placement for stress incont. 12/07 (Dr. Nieves) Stress test 05/07 EF 64% Hysterectomy 10/11 (Dr. Soria) Partial thyroidectomy 1986 Rt neck mass bx - lipoma 2008 (Dr. Borges) Current Medications Home Meds Reported Medications Hydrocodone/Acetaminophen ([place] 5-325 Tablet) 5-325 Tablet, 1 TAB PO Q4-6HPRN Y for PAIN, TAB 01/02/17 Prednisone (Prednisone) 20 Mg Tablet, 20 MG PO TID, TAB Take 1 tablet, by mouth, 2 times a day with meals. 01/02/17 Doxycycline Hyclate (Doxycycline Hyclate) 100 Mg Capsule, 100 MG PO BID 10/21/13 Calcium Carbonate/Vitamin D3 (Calcium + D Tablet) 1 Udtab Tablet, 1 UDTAB PO DAILY 10/20/13 Docusate Sodium (Docusate Sodium) 100 Mg Capsule, 100-200 MG PO DAILY 10/20/13 B2/Vit A,C & E/Lut/Zeaxanth/Mn (Icaps Tablet) 1 Tab.sa Tablet.sa, 1 TAB.SA PO DAILY 10/20/13 Levothyroxine Sodium (Levothyroxine Sodium) 125 Mcg Tablet, 125 MCG PO ACB, #1 TAB 10/20/13 Vit A,C & E/Lutein/Minerals (Ocuvite Tablet) 1 Each Tablet, 1 EACH PO DAILY 05/05/13 Sertraline Hcl (Zoloft) 100 Mg Tablet, 100 MG PO DAILY 05/05/13 Aspirin (Aspir 81) 81 Mg Tablet.dr, 81 MG PO DAILY 12/23/11 Ibuprofen (Ibuprofen) 200 Mg Capsule, 200 MG PO PRN 12/22/11 Rosuvastatin (Crestor) 10 Mg Tablet, 20 MG PO DAILY 12/22/11 Allergies: Coded Allergies: No Known Drug Allergies (Verified Allergy, Unknown, 01/05/17) Family History Family History: No breast or colon cancer. Father at age 75 of CHF. Mother at age 97, hx of stroke. Brother at age 72 of diabetes. 2 brothers had strokes. A brother of esophageal CA at age 69. Twin brother has asthma. Daughter had Hodgkin's, now in remission. Social History Smoking Status: Former smoker # of Packs/Tins per Day: 0.5 # of Years: 5 Quit Date: Sep 28, 2012 Substance Use Type: does not use Alcohol Intake: none Marital Status: Number of Children: 3 Current Occupational Status: retired Prior Occupation: Nurse Advance Directives: Yes DPOA for Healthcare Only (ALAINA NAIR), Yes Full Code Social History Comments PCP Dr Short Review of Systems Constitutional: REPORTS: chills, fever Eyes Vision: DENIES: blurring, double vision, vision changes ENMT Mouth/Throat: DENIES: change in swallowing, painful swallowing, sore throat Cardiovascular DENIES: chest pain, dyspnea on exertion Rhythm/Rate: DENIES: palpitations Vascular: DENIES: pedal edema Pulmonary Respiratory: DENIES: cough, dyspnea GI Upper Abdomen: other (N/V/D at onset of illness - none since), DENIES: pain Lower Abdomen: DENIES: pain General: DENIES: dysuria Musculoskeletal General: other ("hurts all over"), DENIES: joint swelling Integumentary Skin: rash Neurological General: headache, see HPI Psychiatric Psychiatric: DENIES: anxiety Hematologic/Lymphatic DENIES: anemia All Other Systems All Other Systems: Reviewed (remainder of 10-point ROS Neg.) Physical Exam General General Nourishment: well nourished, well developed, obese Height (Feet): 5 Height (Inches): 6.00 Telemetry Rhythm: Sinus Rhythm Eyes Brief: FOUND: PERRL, other (mild scleral injection), NOT FOUND: EOMI ( difficulty tracking to right lower alvarez), scleral icterus ENMT Brief: NOT FOUND: mucosa moist (dry), pharnyx erythema Neck Brief: NOT FOUND: adenopathy, nuchal rigidity Respiratory Auscultation: FOUND: normal, NOT FOUND: rales, rhonchi, wheezes Cardiovascular Auscultation: FOUND: S1, S2, regular Murmur: FOUND: systolic (2/6) Peripheral Pulses: 2+: Dorasalis Pedis (L), Dorsalis Pedis (R), Posterior Tibial (L), Posterior Tibial (R), Radial (L), Radial (R) Edema: 0: Anasarca, Arm (L), Arm (R), Face, Leg (L), Leg (R) Abdomen Inspection: NOT FOUND: distention Palpation: FOUND: soft, NOT FOUND: McBurney's point tender, Ledesma's sign, involuntary guarding, rebound, tender, voluntary guarding Auscultation: FOUND: normo active Lymphatic (brief) Lymphatic Brief: NOT FOUND: adenopathy Integumentary (brief) Integumentary Brief: FOUND: dry, rash (5 mm flat nonblanchable pink colored macules to arms and torso; petechial appearing lesions to legs), warm Integumentary General: FOUND: dry, warm Color: FOUND: pink Neurologic (brief) Neurological Brief: FOUND: cranial 2-12 intact (difficulty with EOM (see above) ; subtle loss of right nasolabial fold), motor (equal compliance representative, shoulders, feet), NOT FOUND: ptosis Neurologic GCS Eye Opening: (4)Spontaneous GCS Verbal: (5)Oriented GCS Motor: (6)Obeys Commands RN Documented GCS Total: 15 - though some of her responses are delayed and she needs some questions repeated MMSE 3/6 - unable to recall 3 words. Oriented to person, place, time, event. Sensation: FOUND: soft touch (intact) Psychiatric (brief) FOUND: alert, attentive, normal affect, oriented Assessment & Plan Problems: (1) Slurred speech Status: Acute (2) Severe headache Status: Acute (3) Hypothyroidism (acquired) Status: Chronic (4) Obesity (BMI 30-39.9) Status: Chronic Plan/Intensity of Service Admit to observation status. Obtain MRI brain, CBC, CMP, lact, procalcitonin, UA, CRP, ESR. IVF: NS at 100 ml/hr. Zofran PRN. Dilaudid for pain control. Pt would prefer to take ibuprofen if possible. She has not been on abx - will discuss consulting ID with Dr. Muir. Further orders pending labs/imaging results. Discussed with Dr. Mi Jacobs, who took care of her while hospitalized. Telestroke consultation with Dr. Chilango balderas. gabapentin 300 mg tid titrate up or tegretol; consider ct angio to r/o vasculitis or skull base mri with contrast - consider repeating LP - send for herpes zoster - consider autoimmune vasculitis with serologies Code Status Full Code Hospital Course Summary Disclaimer The hospital course summary below is not to be considered part of the above Progress Note. Hospital Course Summary 01/05/17 Admit to observation status. Obtain MRI brain, CBC, CMP, lact, procalcitonin, UA, CRP, ESR. IVF: NS at 100 ml/hr. Zofran PRN. Dilaudid for pain control.Pt would prefer to take ibuprofen if possible. She has not been on abx - will discuss consulting ID with Dr. Muir. Further orders pending labs/imaging results. Discussed with Dr. Mi Jacobs, who took care of her while hospitalized. Telestroke consultation with Dr. Chilango balderas. gabapentin 300 mg tid titrate up or tegretol; consider ct angio to r/o vasculitis or skull base mri with contrast - consider repeating LP - send for herpes zoster - consider autoimmune vasculitis with serologies KAROLINA MUIR MD 01/05/178: Past Medical History Current Medications Home Meds Reported Medications Hydrocodone/Acetaminophen ([place] 5-325 Tablet) 5-325 Tablet, 1 TAB PO Q4-6HPRN Y for PAIN, TAB 01/02/17 Prednisone (Prednisone) 20 Mg Tablet, 20 MG PO TID, TAB Take 1 tablet, by mouth, 2 times a day with meals. 01/02/17 Doxycycline Hyclate (Doxycycline Hyclate) 100 Mg Capsule, 100 MG PO BID 10/21/13 Calcium Carbonate/Vitamin D3 (Calcium + D Tablet) 1 Udtab Tablet, 1 UDTAB PO DAILY 10/20/13 Docusate Sodium (Docusate Sodium) 100 Mg Capsule, 100-200 MG PO DAILY 10/20/13 B2/Vit A,C & E/Lut/Zeaxanth/Mn (Icaps Tablet) 1 Tab.sa Tablet.sa, 1 TAB.SA PO DAILY 10/20/13 Levothyroxine Sodium (Levothyroxine Sodium) 125 Mcg Tablet, 125 MCG PO ACB, #1 TAB 10/20/13 Vit A,C & E/Lutein/Minerals (Ocuvite Tablet) 1 Each Tablet, 1 EACH PO DAILY 05/05/13 Sertraline Hcl (Zoloft) 100 Mg Tablet, 100 MG PO DAILY 05/05/13 Aspirin (Aspir 81) 81 Mg Tablet.dr, 81 MG PO DAILY 12/23/11 Ibuprofen (Ibuprofen) 200 Mg Capsule, 200 MG PO PRN 12/22/11 Rosuvastatin (Crestor) 10 Mg Tablet, 20 MG PO DAILY 12/22/11 Allergies: Coded Allergies: No Known Drug Allergies (Verified Allergy, Unknown, 01/05/17) Assessment & Plan Problems: (1) Encephalopathy Status: Acute Assessment & Plan: Suspect LEGAL OFFICER vasculitis. (2) Slurred speech Status: Acute (3) Severe headache Status: Acute (4) Hypothyroidism (acquired) Status: Chronic (5) Obesity (BMI 30-39.9) Status: Chronic Plan/Intensity of Service Have independently interviewed and examined pt. Chart reviewed. Case discussed with my PLAYBACK OPERATOR. Care plan developed with my supervision; agree with above. Increasing SHEPHERD. Had recent LP with unremarkable findings. Presents today for TA Bx. Procedure canceled as pt having increased difficulty speaking - speech slurred. MRI of brain without acute stroke changes. West Nile serology returned and is negative. Herpes screen from prior LP negative. Temp with elevation. Pt will open eyes, but not respond to questions. Lungs: decreased, shallow breathing. CV: regular AB: soft nt/nd BS decreased MSE: somnolent Plan: OBS. Will start Rocephin 2grams IV daily for antimicrobial coverage. Will start Acyclovir empirically. Add Decadron 4mg IV q6 hours. Speech eval. IVF for hydration. Monitor lab. DVT Prophylaxis: SCD'S JOSÉ LUIS SHANKAR APRN Jan 05, 2017 13:33 KAROLINA MUIR MD Jan 05, 2017 18:18
[2017-01-05] MEDS ORDERED: MAG-AL + SIM LIQUID 30 ML UDC PO PRN (15:00)
[2017-01-05] MEDS ORDERED: PRN ORDERS MC (15:00)
[2017-01-05] MEDS ORDERED: HYDROCODONE/APAP 5 mg/325 mg TABLET PO PRN (15:00)
[2017-01-05] MEDS ORDERED: NITROGLYCERIN 0.4 MG SUBLINGUAL TABLET SL PRN (15:00)
[2017-01-05] MEDS ORDERED: MILK OF MAGNESIA 30 ML SUSP PO PRN (15:00)
[2017-01-05] MEDS ORDERED: BISACODYL 10 MG SUPPOSITORY RECTALLY PRN (15:00)
--- NOTE | 2017-01-05 15:00 | NUR ---
ADMIT PT ADMITTED BY CART TO ROOM 142. PT ON RA, DENIES SOA. PT DENIES PAIN AT THIS TIME. PT ALERT AND ORIENTED X3, VERY FATIGUED. WILL CONTINUE TO MONITOR.
--- NOTE | 2017-01-05 15:15 | DI ---
Indication: ITS.REASON: SLURRED SPEECH; R/O STROKE PROCEDURE: MRI BRAIN W/O CONTRAST: Encounter: Initial Comparisons: None. Technique: Multiplanar, multisequence, MR imaging of the head without contrast was acquired. FINDINGS: Limited visualization of the inferior aspect of the posterior fossa due to loss of signal. Mild to moderate motion artifact. The ventricles are of normal size, shape, and contour for the patient's age. There are small nonspecific punctate areas of T2-weighted and T2 FLAIR weighted signal abnormality in the deep frontoparietal white matter that most likely represent small vessel ischemic disease. This is of a degree that is slightly advanced for the patient's age. The brain stem, cerebellum, and cerebral hemispheres otherwise have a grossly normal morphologic appearance as well as MR signal intensity on all pulse sequences. There are no areas of restricted diffusion on diffusion weighted imaging to suggest an acute infarct. There is no gross evidence of an intracranial mass lesion, intracranial hemorrhage, or hydrocephalus. The visualized portions of the orbits, calvarium, paranasal sinuses, and skull base demonstrate no significant abnormality. IMPRESSION: 1. No acute stroke or gross acute intracranial abnormality. 2. Slightly advanced chronic microvascular ischemic white matter disease for age. .
--- NOTE | 2017-01-05 15:15 | NUR ---
DR ALEXIS JOHNSON PAGED AT THIS TIME.
[2017-01-05 15:35] LABS: HCT - HEMATOCRIT 37.4 % (36-46); HGB - HEMOGLOBIN 12.2 GM/DL (12-16); MEAN CORPUSCULAR HGB 30.3 UUG (26-34); MEAN CORPUSCULAR HGB CONC(MCHC 32.6 GM/DL (31-37); MEAN PLATELET VOLUME 11.4 UM3 (9.4-12.4); RED BLOOD COUNT 4.02 M/MM3 (4.00-5.20); WBC - WHITE BLOOD COUNT 8.3 T/MM3 (4.5-11.0)
[2017-01-05 15:50] LABS: INR 1.15 (0.76-1.04); PROTHROMBIN TIME 12.5 SEC (9.31-12.49); PTT 23.4 SEC (24-36)
[2017-01-05 15:51] LABS: ALKALINE PHOSPHATASE 77 U/L (38-126); ALT (SGPT) 65 U/L (9-52); ANION GAP 9 MEQ/L (5-15); AST (SGOT) 73 U/L (14-36); CALCIUM 8.7 MG/DL (8.4-10.2); CHLORIDE 101 MEQ/L (98-107); CO2 - CARBON DIOXIDE 32 MEQ/L (22-30); GLUCOSE 129 MG/DL (65-110); LACTATE - LACTIC ACID 1.3 MMOL/L (0.6-2.2); SODIUM 142 MEQ/L (134-144); TOTAL PROTEIN 6.1 G/DL (6.3-8.2)
[2017-01-05 15:59] LABS: BAND NEUTROPHILS # 2.2 T/MM3; LYMPHOCYTES # (MANUAL) 0.6 T/MM3 (1-4.8); METAMYELOCYTES # 0.2 T/MM3; MONOCYTES # (MANUAL) 0.4 T/MM3 (0-0.8); NEUTROPHILS #(MANUAL)-ABSOLUTE 4.8 T/MM3 (1.8-7.7); TOTAL CELLS COUNTED 100 %
[2017-01-05 16:02] LABS: BUN/CREATININE RATIO 29 RATIO (6-26); CREATININE 0.7 MG/DL (0.7-1.2); GLOMERULAR FILTRATION RATE 81
[2017-01-05 16:19] LABS: C-REACTIVE PROTEIN 64.1 MG/L (0-9)
[2017-01-05] MEDS: GABAPENTIN 300 MG CAPSULE PO SCH ×2 (16:30→21:00)
[2017-01-05] MEDS: PredniSONE 20 MG TABLET PO SCH ×2 (16:31→23:06)
[2017-01-05] MEDS ORDERED: CEFTRIAXONE 2 G in NORMAL SALINE 100 ML IV SCH (18:15)
[2017-01-05] MEDS: DEXAMETHASONE 4mg/ml - 1ml INJECTION IV SCH (18:39)
[2017-01-05] MEDS: ACETAMINOPHEN 325 MG TABLET PO PRN (19:20)
[2017-01-05] MEDS ORDERED: CLONIDINE 0.1 MG TABLET PO ONE (19:45)
--- NOTE | 2017-01-05 20:00 | NUR ---
SHIFT SUMMARY PT ALERT TO PERSON, APPEARS VERY FATIGUED. PT LETHARGIC, BILATERAL EXTREMITY WEAKNESS NOTED. PT'S FAMILY REPORTS DECREASED LOC COMPARED TO BASELINE. PT ON 2L/NC, BREATHING IRREGULAR AND TACHYPNEIC, ABDOMINAL RETRACTIONS NOTED. PRN TYLENOL ADMINISTERED FOR ELEVATED TEMP AND PAIN, SEE CHARTING. PT GRIMACES AT TIMES, REPORTED PAIN 5/10. TURN Q2H WITH ASSIST X2, MAX ASSIST. PT UNABLE TO HOLD HERSELF UP IN BED. SWALLOWS PILLS WITH APPLESAUCE, PILLS WILL OCCASIONALLY NOT GO DOWN ON FIRST SWALLOW, PT POCKETS. IVF INFUSING ORDERED INTO RIGHT AC. NO URINE OUTPUT THIS SHIFT. CONTINUE TO MONITOR.
[2017-01-05] MEDS: NORMAL SALINE IV SCH (20:07)
[2017-01-05] MEDS: ACYCLOVIR IV SCH (20:07)
[2017-01-05] MEDS ORDERED: ROSUVASTATIN 20 MG TABLET PO SCH (22:00)
--- NOTE | 2017-01-05 22:45 | NUR ---
Straight Cath Bladder scanned 630 ml urine at 2014. Pt incontinent of urine. Notified Juventino Easley who ordered straight cath x1 for UA. Utilized sterile technique and 16 Fr straight catheter. First attempt not successful. Second attempt with sterile technique successful with immediate return of clear light chapis urine. Pt tolerated without problems.
--- NOTE | 2017-01-05 23:12 | NUR ---
Meds Attempted to administer evening meds with bites of applesauce. Pt woke enough to swallow predinsone, but was too lethargic to swallow rosuvastatin and gabapentin.
[2017-01-05 23:14] LABS: BLOOD, URINE NEGATIVE (NEGATIVE); COLOR,URINE YELLOW (YELLOW); LEUKOCYTE ESTERASE ,URINE NEGATIVE (NEGATIVE); NITRITE,URINE NEGATIVE (NEGATIVE)
[2017-01-05 23:23] LABS: BACTERIA,URINE NONE SEEN (NEGATIVE); RBC,URINE NONE SEEN /HPF (0-3); WBC,URINE NONE SEEN /HPF (0-5)
[2017-01-06] MEDS: DEXAMETHASONE 4mg/ml - 1ml INJECTION IV SCH ×3 (00:55→13:05)
--- NOTE | 2017-01-06 01:29 | NUR ---
Status Pt not able to answer question about location. Pt hand stitcher tape controlled machine equal and weak bilaterally. Opens eyes spontaneously and to voice. Drifts off to sleep after several questions. Able to raise R leg when asked to. Able to move L leg, but not to raise it as high as R leg. Denies pain. States she feels comfortable.
[2017-01-06] MEDS: NORMAL SALINE 1,000 ML IV SCH (02:12)
--- NOTE | 2017-01-06 02:15 | NUR ---
Status Pt more awake and answered "[facility]" to location question. Able to answer correct date of . Able to say that she had a headache, but that she was comfortable otherwise.
[2017-01-06] MEDS: ACYCLOVIR IV SCH ×2 (03:33→10:52)
[2017-01-06] MEDS: NORMAL SALINE IV SCH ×2 (03:33→10:52)
[2017-01-06 04:19] VITALS: TEMP 99
--- NOTE | 2017-01-06 04:19 | NEUROPD ---
Telestroke Consultation Note Patient Information Last Name:Joanie First Name:Aviva Location: [facility] Arrival Date/Time: Age:76 Weight:103.500 Gender:female Mode of Arrival: Cart Clinical Presentation Clinical Presentation lethargy Vital Signs/Laboratory Laboratory Tests Test 01/05/17 23:00 Urine Collection Type Urine Color Yellow Urine Turbidity Clear Urine pH 6.5 Urine Specific [place] 1.015 Urine Protein 1+ Urine Glucose (UA) Negative Urine Ketones Negative Urine Blood Negative Urine Nitrite Negative Urine Bilirubin Negative Urine Urobilinogen 2.0EU/DL Urine Leukocyte Esterase Negative Urine RBC None seen/HPF Urine WBC None seen/HPF Urine Bacteria None seen Urine Culture Indicated Cult not indicated Vital Signs Date Time Temp Pulse Resp B/P Pulse Ox O2 Delivery O2 Flow Rate FiO2 01/05/17 23:00 101.6 91 28 145/81 96 Nasal Cannula 1.00 Patient History Patient History: REPORTS altered mental status, REPORTS headache, REPORTS trigeminal neuralgia Scheduled Aspirin (Aspir 81) 81 Mg Tablet.dr, 81 MG PO DAILY, (Reported) B2/Vit A,C & E/Lut/Zeaxanth/Mn (Icaps Tablet) 1 Tab.sa Tablet.sa, 1 TAB.SA PO DAILY, (Reported) Calcium Carbonate/Vitamin D3 (Calcium + D Tablet) 1 Udtab Tablet, 1 UDTAB PO DAILY, (Reported) Docusate Sodium (Docusate Sodium) 100 Mg Capsule, 100-200 MG PO DAILY, (Reported ) Doxycycline Hyclate (Doxycycline Hyclate) 100 Mg Capsule, 100 MG PO BID, ( Reported) Ibuprofen (Ibuprofen) 200 Mg Capsule, 200 MG PO PRN, (Reported) Levothyroxine Sodium (Levothyroxine Sodium) 125 Mcg Tablet, 125 MCG PO ACB, ( Reported) Prednisone (Prednisone) 20 Mg Tablet, 20 MG PO TID, (Reported) Take 1 tablet, by mouth, 2 times a day with meals. Rosuvastatin (Crestor) 10 Mg Tablet, 20 MG PO DAILY, (Reported) Sertraline Hcl (Zoloft) 100 Mg Tablet, 100 MG PO DAILY, (Reported) Vit A,C & E/Lutein/Minerals (Ocuvite Tablet) 1 Each Tablet, 1 EACH PO DAILY, ( Reported) Scheduled PRN Hydrocodone/Acetaminophen ([place] 5-325 Tablet) 5-325 Tablet, 1 TAB PO Q4-6HPRN PRN for PAIN, (Reported) Allergies: Coded Allergies: No Known Drug Allergies (Verified Allergy, Unknown, 01/05/17) Patient's Surgical History: Colonoscopy 05/09 (20 cm tubular adenoma & hyperplastic polyp) Transobturator subfacial sling placement for stress incont. 12/07 (Dr. Nieves) Stress test 05/07 EF 64% Hysterectomy 10/11 (Dr. Soria) Partial thyroidectomy 1986 Rt neck mass bx - lipoma 2008 (Dr. Borges) Family History: No breast or colon cancer. Father at age 75 of CHF. Mother at age 97, hx of stroke. Brother at age 72 of diabetes. 2 brothers had strokes. A brother of esophageal CA at age 69. Twin brother has asthma. Daughter had Hodgkin's, now in remission. Smoking Status: Former smoker # of Packs/Tins per Day: 0.5 # of Years: 5 Quit Date: Sep 28, 2012 Substance Use Type: does not use Alcohol Intake: none Marital Status: Number of Children: 3 Current Occupational Status: retired Prior Occupation: Nurse Advance Directives: Yes DPOA for Healthcare Only (ALAINA ISABEL, daughter), Yes Full Code HPI Consult Start Time: 15:22 History of Present Illness Pt has been feeling like she is having flu-like symptoms (n/v, aching, lethargic , weak) starting last week. she went to ED last week and observed overnight and having sharp shooting head pains. she had a fever the next morning after admission to a different hospital. LP was negative for infection, W. Nile. Blood work normal. prednisone started, with norco and tylenol and ibuprofen was helpful. no vision issues. set up for temporal arteritis biopsy. Got another fever of 104 2 days ago. while she was getting admitted for temporal artery biopsy she developed slurred speech and lethargy. she got dilaudid 0.5mg at 13:47 and also 2 hours before that. she has been more lethargic after getting these medications. Data: Brain MRI without contrast - negative except microvascular disease CT head negative. CRP 9, ESR pending. CSF - no cell count given, no rbc. glu 65, prot 34, cult neg, UA neg. wbc normal. ROS Neurological: headache, see HPI Neuro Scores-NIHSS Level of Consciousness: 1 Level of Consciousness: 1 Level of Consciousness: 0 Best Gaze: 0 Visual: 0 Facial Palsy: 0 Motor Arm Left: 0 Motor Arm Right: 0 Motor Leg Left: 0 Motor Leg Right: 0 Limb Ataxia: 0 Sensory: 0 Best Language: 0 Dysarthria: 0 Extinction and Inattention: 0 t-PA Imaging Reviewed: Yes Time Imaging Reviewed: 15:52 Imaging Findings negative for stroke or mass Comments Not stroke t-PA Recommended?: No Recommendation Impression: (1) Neuralgia and neuritis (2) Encephalopathy Recommendation treat for neuralgic head pain Gabapentin 300mg tid and titrate up as tolerated , or tegretol 100-200mg tid proceed with temporal artery biopsy CTA of head and neck to eval for vasculopathy or vasculitis MRI of skull base with contrast if all else negative Consider repeat LP for Herpes Zoster if pt continues febrile, of note serum serologies negative for H zoster HILLARY JOHNSON MD Jan 06, 2017 04:04
--- NOTE | 2017-01-06 06:19 | NUR ---
Lethargy Pt very lethargic and only opened eyes once to verbal stimuli and light touch this morning. Did not answer questions or follow commands.
[2017-01-06] MEDS ORDERED: LEVOTHYROXINE 125 MCG TABLET PO SCH (06:30)
--- NOTE | 2017-01-06 06:56 | NUR ---
Family Pt's daughter, Farida, DINA, called and requested an update. Update given.
[2017-01-06 07:10] LABS: HCT - HEMATOCRIT 38.4 % (36-46); HGB - HEMOGLOBIN 12.6 GM/DL (12-16); MEAN CORPUSCULAR HGB 30.5 UUG (26-34); MEAN CORPUSCULAR HGB CONC(MCHC 32.8 GM/DL (31-37); MEAN PLATELET VOLUME 10.9 UM3 (9.4-12.4); RED BLOOD COUNT 4.13 M/MM3 (4.00-5.20); WBC - WHITE BLOOD COUNT 9.2 T/MM3 (4.5-11.0)
[2017-01-06 07:22] LABS: ALBUMIN 3.1 G/DL (3.5-5.0); ALBUMIN/GLOBULIN RATIO 0.9 RATIO (1.1-2.2); ALKALINE PHOSPHATASE 82 U/L (38-126); ALT (SGPT) 69 U/L (9-52); ANION GAP 12 MEQ/L (5-15); AST (SGOT) 109 U/L (14-36); BUN/CREATININE RATIO 27 RATIO (6-26); C-REACTIVE PROTEIN 50.2 MG/L (0-9); CALCIUM 8.5 MG/DL (8.4-10.2); CHLORIDE 101 MEQ/L (98-107); CO2 - CARBON DIOXIDE 30 MEQ/L (22-30); CREATININE 0.7 MG/DL (0.7-1.2); GLOMERULAR FILTRATION RATE 81; GLUCOSE 95 MG/DL (65-110); POTASSIUM 4.1 MEQ/L (3.6-5); SODIUM 143 MEQ/L (134-144); TOTAL PROTEIN 6.7 G/DL (6.3-8.2)
[2017-01-06 07:37] LABS: BAND NEUTROPHILS # 1.8 T/MM3; LYMPHOCYTES # (MANUAL) 1.3 T/MM3 (1-4.8); METAMYELOCYTES # 0.3 T/MM3; NEUTROPHILS #(MANUAL)-ABSOLUTE 4.2 T/MM3 (1.8-7.7); REACTIVE LYMPHOCYTES # 0.6 T/MM3 (0-0); TOTAL CELLS COUNTED 100 %
[2017-01-06 07:38] LABS: ANISOCYTOSIS 1+; POIKILOCYTOSIS 1+
[2017-01-06 08:00] VITALS: BP 159/87; PULSE 91; RESP 18; TEMP 100.7; O2SAT 94
--- NOTE | 2017-01-06 08:00 | CONSF ---
DATE OF CONSULTATION 01/05/2017 FINDINGS Mrs. Nair is a 76-year-old female on whom I was scheduled to perform a right temporal biopsy today. I was contacted by the preoperative nursing staff stating that the patient was slurring her speech and was experiencing a severe headache. I then requested that the hospitalist system, if possible, evaluate the patient as a result of these concerning symptoms. Following the procedure that I was currently performing, I did go into the preoperative area and evaluate the patient. She did have a washcloth covering her face as a result of the lights. Her daughter was present. Apparently, earlier today, the patient began to experience severe pain, worse than what she had been experiencing previously. Last week the patient was hospitalized at [facility] as a result of a severe right-sided headache and a fever of uncertain etiology. She did undergo an extensive workup while at [facility] and no identifiable etiologies were determined for her fever and severe right-sided headache. It was felt the patient may be suffering from temporal arteritis and therefore a temporal artery biopsy had been requested as stated above. The patient has been treated empirically with oral prednisone for suspected temporal arteritis. PAST MEDICAL HISTORY Performed by my nurse practitionerJefferson. PAST SURGICAL HISTORY Performed by my nurse practitionerJefferson. MEDICATIONS Performed by my nurse practitionerJefferson. ALLERGIES Performed by my nurse practitionerJefferson. SOCIAL HISTORY Performed by my nurse practitionerJefferson. FAMILY HISTORY Performed by my nurse practitionerJefferson. REVIEW OF SYSTEMS Performed by my nurse practitionerJefferson. PHYSICAL EXAMINATION Mrs. Nair is a 76-year-old female who does appear to be in a fair amount of discomfort. VITALS: Please refer to electronic medical record. The patient is in the process of being admitted to the hospital. HEENT: Normocephalic. Pupils are equal, round, reactive to light and accommodation. Palpation within the right forehead and right temporal region did elicit a fair amount of discomfort to the patient. The patient also, however, had some slight tenderness with palpation in the left temporal region as well, but right was definitely greater than left. NECK: Supple without lymphadenopathy. CHEST: Clear auscultation bilaterally. HEART: Rate and rhythm. ABDOMEN: Soft, nontender. No evidence for guarding or rebound. No evidence of hepatosplenomegaly. EXTREMITIES: Without clubbing, cyanosis or edema. NEURO: Cranial nerves II-XII grossly intact. Patient with was without focal motor or sensory deficits. LABORATORY/RADIOGRAPH EVALUATION I did review the patient's outside records from [facility]. The patient has not had any lab or radiographic evaluation at the time of this dictation. PLAN Cancel right temporal artery biopsy and proceed with admission by hospitalist system for further evaluation. I did inform the patient's daughter that I did not feel comfortable at this point time proceeding with a right temporal artery biopsy given the fact that Mrs. Nair is experiencing severe right-sided pain and has had some mentation changes. I do feel the patient should be evaluated for a possible stroke at this point in time. Once the patient has been deemed stable from a medical standpoint, at that point time will readdress about proceeding with a right temporal artery biopsy. I appreciate the hospitalist system for taking over care from a medical standpoint of this challenging patient. ÁLVARO
--- NOTE | 2017-01-06 08:00 | NUR ---
REPORT RECEIVED PATIENT IS SOMNOLENT. PATIENT RESPONDS TO HER NAME BUT FALL RIGHT BACK TO SLEEP. NO SIGN OS PAIN NOTED. ON 1L NC O2 AT THIS TIME. NS AT 100ML/HR PER LEFT AC IV.
[2017-01-06] MEDS: PredniSONE 20 MG TABLET PO SCH ×2 (09:00→09:15)
[2017-01-06] MEDS ORDERED: SERTRALINE 100 MG TABLET PO SCH (09:00)
[2017-01-06] MEDS: GABAPENTIN 300 MG CAPSULE PO SCH ×2 (09:00→09:15)
--- NOTE | 2017-01-06 09:00 | NUR ---
FEVER PATIENT TEMP IS 100.7 BUT IS NOT ABLE TO SWALLOW ANY PO MEDICATION AT THIS TIME.
[2017-01-06] MEDS: ACETAMINOPHEN 325 MG TABLET PO PRN (09:16)
[2017-01-06 10:22] VITALS: TEMP 102.7
[2017-01-06] MEDS ORDERED: ACETAMINOPHEN 325 MG SUPPOSITORY RECTALLY PRN (10:30)
--- NOTE | 2017-01-06 10:45 | NUR ---
FEVER TEMP 102.7, TYLENOL SUPPOSITORY IS ORDERED AND ADMINISTERED.
--- NOTE | 2017-01-06 11:05 | PNPDOC ---
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 Less responsive today. Not interacting, not recognizing family member. More somnolent. Temp with elevation. Objective Vital Signs Vital signs Vital Signs Date Time Temp Pulse Resp B/P Pulse Ox O2 Delivery O2 Flow Rate FiO2 01/06/17 10:22 102.7 01/06/17 08:00 91 18 01/06/17 08:00 159/87 94 Nasal Cannula 1.00 Telemetry Rhythm: Sinus Rhythm Height (Feet): 5 Height (Inches): 6.00 Weight (Kilograms): 103.000 General General Appearance: Obese, Other (Somnolent ) Eyes (Brief) Eyes: NOT FOUND: scleral icterus ENMT (Brief) ENMT: FOUND: mucosa moist Neck (Brief) Neck: FOUND: midline, NOT FOUND: nuchal rigidity, spasm Respiratory (Brief) Respiratory: NOT FOUND: clear all alvarez (Decreased breath sounds. Shallow breathing. ), rales, wheezes Cardiovascular (Brief) Cardiac: FOUND: pedal edema (Trace ), regular rate, regular rhythm Abdomen (Brief) Abdominal: FOUND: BS normo active x4, soft, NOT FOUND: distended, tender Extremities (Brief) Extremity : Side: Bilateral Extremity: leg Extremity Finding: FOUND: edema (Trace ), other (scd) Integumentary (Brief) Integumentary: FOUND: dry, warm Psychiatric (Brief) Psychiatric: FOUND: other (Somnolent. 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 (2) Slurred speech Status: Acute (3) Severe headache Status: Acute (4) Hypothyroidism (acquired) Status: Chronic (5) Obesity (BMI 30-39.9) Status: Chronic Plan/Intensity of Service With patients lack of improvement despite IV Decadron, Rocephin, and Acyclovir feel transfer to higher level of care prudent. Discussed with Family. [address] Broussard and Dr Michelle Melendez at [facility]. Did graciously agree to accept pt in transfer. Will transfer to [facility] via [facility]. Discussed with family and CM. See orders for details. DVT Prophylaxis: SCD'S Code Status Full Code Hospital Course Summary Disclaimer The hospital course summary below is not to be considered part of the above Progress Note. Hospital Course Summary 01/05/17 Admit to observation status. Obtain MRI brain, CBC, CMP, lact, procalcitonin, UA, CRP, ESR. IVF: NS at 100 ml/hr. Zofran PRN. Dilaudid for pain control.Pt would prefer to take ibuprofen if possible. She has not been on abx - will discuss consulting ID with Dr. Muir. Further orders pending labs/imaging results. Discussed with Dr. Mi Jacobs, who took care of her while hospitalized. Telestroke consultation with Dr. Chilango balderas. gabapentin 300 mg tid titrate up or tegretol; consider ct angio to r/o vasculitis or skull base mri with contrast - consider repeating LP - send for herpes zoster - consider autoimmune vasculitis with serologies 01/06 Less responsive today. Not interacting, not recognizing family member. More somnolent. Temp with elevation. With patients lack of improvement despite IV Decadron, Rocephin, and Acyclovir feel transfer to higher level of care prudent. Discussed with Family. [address] Broussard and Dr Michelle Melendez at [facility]. Did graciously agree to accept pt in transfer. Will transfer to [facility] via [facility]. Discussed with family and CM. See orders for details. KAROLINA MUIR MD Jan 06, 2017 11:02
--- NOTE | 2017-01-06 12:15 | NUR ---
CM CM IN TO VISIT WITH PT. SHE IS UNABLE TO PARTICIPATE IN DC PLANNING SECONDARY TO CLINICAL CONDITION. HER SON IS PRESENT. DC NEEDS ARE UNCLEAR AT THIS TIME. CM INTRODUCED SELF AND EXPLAINED ROLE. PT IS GIVEN CM CONTACT INFORMATION. Addendum: 01/06/17 at 1217 by KATALINA QUIROZ RN Amended: Links added.
[2017-01-06 12:33] VITALS: TEMP 99.4
[2017-01-06] MEDS ORDERED: CEFT2FRO3 IV (13:24)
[2017-01-06] MEDS ORDERED: DEXA4VIA IV (13:24)
[2017-01-06] MEDS ORDERED: ACYC200P IV (13:24)
[2017-01-06] MEDS ORDERED: GABA300C PO (13:24)
--- NOTE | 2017-01-06 13:43 | NUR ---
SPEECH THERAPY EVALUATION ATTEMPTED ATTEMPTED TO COMPLETE COMMUNICATION EVALUATION THIS AM- PT UNRESPONSIVE. RN REPORTS SHE HAS BEEN UNRESPONSIVE MOST OF MORNING. WILL ATTEMPT WHEN SHE IS MORE ALERT
[2017-01-06 14:44] VITALS: TEMP 100.7
--- NOTE | 2017-01-06 15:04 | NUR ---
TRANSFERRED PATIENT IS DISCHARGED TO [facility] ROOM 7-218. REPORT CALLED TO AARON ADAMS AT [facility]. ALL QUESTIONS ARE ANSWERED. EMS TRANSPORTS PATIENT TO [facility]. FAMILY ACCOMPANIES PATIENT TO [place]. PATIENT LEAVES WITH RIGHT AC PIV SITE.
--- NOTE | 2017-01-07 13:47 | DSF ---
ADMISSION DIAGNOSIS Encephalopathy. 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 ASSOCIATED CONDITIONS AND COMPLICATIONS Slurred speech. Severe headache. Hypothyroidism. Obesity. CONSULTS Teleneurology. Speech therapy. PROCEDURES MRI of brain - no acute stroke or gross acute intracranial abnormality; slightly advanced chronic microvascular ischemic white matter disease for age. CLINICAL RESUME Aviva Nair is a 76-year-old female who began having fever and right temporal headache on 12/27/2016. At that time, she did have a max temperature of 103. She was admitted to the hospital in [facility] - CT scan of head and chest were negative. She underwent lumbar puncture and cultures were negative. Blood and urine cultures were negative. West Nile and Byars spotted fever serology were sent out. She did develop a macular pink colored non-blanchable rash to arms and torso; lesions were about 5 mm in diameter and they tended to come and go. Dr. Mi Jacobs consulted Dr. 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 She was started on prednisone; she never had antibiotics - a source of temperature elevation was not identified. She was scheduled for temporal artery biopsy on 01/01/2017 but developed new fever so this was rescheduled to 01/05/2017. Symptoms persisted - she had fever up to 104.5 on . Headache typically would range between 2-5 in intensity. At home she was using ibuprofen , Tylenol and [place] to help with pain and temperature control. On day of biopsy she was n.p.o. and she was not able to take her pain medications. Pain shot up significantly to 9/10 (patient is quite stoic and this is quite a severe pain for her). She was having difficulty walking into the hospital and was transported by wheelchair. Additionally she developed new slurred speech and delayed response. Dr. Perez cancelled procedure secondary to symptoms and Dr. Muir was notified. Patient was subsequently seen in preop area. She kept a towel over her eyes and an ice bag to the right side of her head. Her only complaint was severe headache. She was not running a fever today but had a low grade temperature all day yesterday. She has not had any upper respiratory symptoms. She denies dyspnea, chest pain, palpitations, visual changes, paresthesia, dysphagia, nausea, vomiting, diarrhea, constipation, or leg swelling. She has not had recent travel. She has a pet dog. She has had no known exposures. Typically she is very active and going. In light of her acute symptoms, she was placed in outpatient observation for further evaluation and treatment. For complete details of the H&P refer to that document. LABORATORY White blood count is 8.3 with 58% neutrophils and 27% bands. Hemoglobin is 12.2 , with hematocrit 37.4, MCV 93.0 and platelets 121,000. ESR is 14. Serum sodium is 142, potassium 4.0 , chloride 101, CO2 32, BUN 20 with creatinine 0.7, GFR 81 and blood glucose 129. AST is 73 with ALT 65. C-reactive protein is elevated at 64.1. Lactate is 1.3. Procalcitonin is 2.09. INR is 1.15 with PTT 23.4. UA is positive only for 1+ protein. LP PCR panel is negative (samples from 01/01/2017, but ran on 01/05/2017). HOSPITAL COURSE The patient was placed in outpatient observation status at [facility] under the care of Dr. Muir. She was started on normal saline at 100 mL/hr to help with hydration. We had Zofran made available as needed for nausea and Dilaudid for pain control. In light of her acute neurological changes, she did undergo MRI of brain without contrast. Results are as above. Tele-stroke consultation was placed. They did recommend Neurontin 300 mg t.i.d. to see if this would help with pain. They did not feel symptoms were stroke induced. Possible vasculitis was raised. With her slurred speech, we did have Speech evaluate her swallow function. Additionally we did initiate Rocephin 2 g IV daily for antimicrobial coverage and also acyclovir 800 mg IV q.8h. to cover viruses. Prednisone was held, utilizing Decadron 4 mg IV q.6h. in its place. Unfortunately the next hospital day was one of no improvement. If anything, the patient was less responsive, not recognizing family members. Her white count had increased slightly to 9.2 and we were still seeing a shift noted. Liver enzymes did trend upwards. The patient did have temperature elevations, ranging up to 102.7. In light of her worsening status, Dr. Muir did contact physicians at [facility], to arrange transfer. Case was discussed with Dr. Broussard. He did concur that further evaluation was prudent ; case was therefore discussed with Dr. Munira Melendez and arrangements for transfer to [facility] Neuro ICU were made. Family was notified and did concur with transfer. She was able to be transferred in stable but guarded condition. Narrative disclaimer: Above narrative is a brief summary of the patient's hospitalization; for complete details of the hospital course, refer to the medical record. DISCHARGE CONDITION Stable/guarded. DIET N.p.o. as patient is not cognizant enough to swallow. ACTIVITIES Up with assistance. MEDICATIONS Rocephin 2 g IV daily. Acyclovir 800 mg IV q.8h. Decadron 4 mg IV q.6h. Aspirin 81 mg daily. I-Cap daily. Calcium with vitamin D daily. Colace 100 mg one to two daily. Doxycycline 100 mg b.i.d. - recently started in outpatient setting. [place] 5/325 one q.4-6h. p.r.n. pain. Ibuprofen 200 mg p.r.n. Levothyroxine 0.125 mg a.c. breakfast. Prednisone 20 mg t.i.d. (on hold as the patient is currently on Decadron) Crestor 20 mg daily. Zoloft 100 mg daily. Ocuvite daily. FOLLOWUP The patient will followed by Dr. Melendez while at [facility]. Definitive hospital followup with Dr. Anitra Short will be made at time of discharge from [facility]. INSTRUCTIONS TO PATIENT The patient was not given detailed care instructions secondary to her encephalopathy and inability to comprehend them. Case was discussed with medical team at [facility]. Transport arrangements were made via [facility]. Should problems or need occur, she could be in contact with the nursing staff and her care providers at [facility]. Time spent with discharge greater than 35 minutes. MTDD
== END 2017-01-06 15:04 | disposition short-term general hospital (02) ==
LOC: SCU 11:54 → MED 13:28
PROVIDERS: ADMIT Hospitalist; ATTEND Surgery
DX: G93.40 Encephalopathy, unspecified (principal); R47.81 Slurred speech; R51 Headache; R50.9 Fever, unspecified; Z53.8 Procedure and treatment not carried out for other reasons; E03.9 Hypothyroidism, unspecified; E66.9 Obesity, unspecified; Z68.36 Body mass index [BMI] 36.0-36.9, adult; R53.81 Other malaise; G58.8 Other specified mononeuropathies; Z79.52 Long term (current) use of systemic steroids; Z79.82 Long term (current) use of aspirin; Z79.1 Long term (current) use of non-steroidal anti-inflammatories (NSAID); Z79.899 Other long term (current) drug therapy; Z87.891 Personal history of nicotine dependence
CPT/HCPCS: 36415; 70551; 80053; 81001; 83605; 84145; 85025; 85610; 85652; 85730; 86140; 87483; 96361; 96365; 96366; 96367; 96375; 96376; A9270; G0378; J0133; J0696; J1100; J1170; J7030; J7050; J7120; J7512; 99218